=== PATIENT | male | born 1950 | race Two or more races ===

== ENCOUNTER 2016-07-22 08:08 | Emergency (ER) | payer BC ==
[~2016-07-22] VITALS: Wt 67.0 kg
[~2016-07-22 08:08] MED LIST: ATOR80TA75 PO; BACL10TA PO; CARV6.2579 PO; CLOP75TA27 PO; DOXA4TAB3 PO; GABA100C14 PO; ISOS10TA2 PO; LISI-313 PO; METF500T4 PO; PHEN300C2 PO
--- NOTE | 2016-07-22 08:43 | ERD ---
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 Patient states that he did see his primary care doctor to check his urine, they report that there was no evidence of any infection at the time of this appointment. He states that he feels like there is a "ball" at the left side of the rib, feels like it is pressure type sensation. Primary care doctor also saw him for this and was told that it was fine. He denies any cough, hemoptysis. He has not had any fever, chills, nausea, vomiting or hematuria. ROS All systems reviewed and are negative except as per history of present illness. Medications Home Meds Active Scripts Metformin* (Glucophage*) 500 Mg Tab, 500 MG PO WITH BREAKFAST DINNE, #60 TAB Prov:[employer] 09/14/15 Reported Medications Doxazosin Mesylate* (Doxazosin Mesylate*) 4 Mg Tablet, 4 MG PO DAILY, TAB 09/11/15 Phenytoin* Sodium Extended (Dilantin*) 300 Mg Capsule, 300 MG PO DAILY, CAP 09/11/15 Baclofen* (Baclofen*) 10 Mg Tablet, 10 MG PO DAILY, TAB 09/11/15 Gabapentin* (Gabapentin*) 100 Mg Capsule, 100 MG PO DAILY, #90 CAP 09/11/15 Atorvastatin* (Atorvastatin*) 80 Mg Tablet, 80 MG PO QHS, #30 TAB 09/11/15 Isosorbide Dinitrate* (Isordil*) 10 Mg Tablet, 30 MG PO DAILY, TAB 09/11/15 Clopidogrel Bisulfate (Clopidogrel) 75 Mg Tablet, 75 MG PO DAILY, #30 TAB 09/11/15 Lisinopril* (Lisinopril*) 5 Mg Tablet, 5 MG PO DAILY, #30 TAB 09/11/15 Carvedilol* (Carvedilol*) 6.25 Mg Tablet, 6.25 MG PO BID, #60 TAB 09/11/15 Allergies Allergies: Coded Allergies: No Known Allergy (Unverified , 09/11/15) PMhx/Soc History of Surgery: No Anesthesia Reaction: No Hx Neurological Disorder: No Hx Respiratory Disorders: No Hx Psychiatric Problems: No Hx Miscellaneous Medical Probl: No Hx Alcohol Use: No Hx Substance Use: No Hx Tobacco Use: No Physical Exam Vitals Vital Signs Date Time Temp Pulse Resp B/P Pulse Ox O2 Delivery O2 Flow Rate FiO2 07/22/16 08:13 98.6 59 17 126/81 99 Physical Exam General: Well-developed, well-nourished. Left-sided paralysis baseline HEENT: Head is normocephalic, atraumatic. No scleral icterus. Neck: Supple. Nontender. Lungs: Clear to auscultation. Normal air movement. No crepitus, no skin changes or rash on chest Heart: Regular rate and rhythm. S1 and S2 are normal. No murmurs, gallops, or rubs. Abdomen: Soft, nontender, nondistended. Bowel sounds are normoactive. Extremities: No clubbing or cyanosis. Normal pulses. Moves right upper and left upper extremity. Residual weakness on left upper and left lower extremity has baseline Neurologic: Alert and oriented 3. Speech is normal, patient is in a wheelchair normally. Skin: Normal turgor. No rash or lesions. Results 24 hrs Laboratory Tests Test 07/22/16 08:56 07/22/16 10:03 Bedside Urine pH (LAB) 7.0 Bedside Urine Protein (LAB) Negative Bedside Urine Glucose (UA) Negative Bedside Urine Ketones (LAB) Negative Bedside Urine Blood Trace-intact Bedside Urine Nitrite (LAB) Negative Bedside Urine Leukocyte Esterase (L Negative Bedside Glucose 118mg/dL PROCEDURE: Chest x-ray CLINICAL INDICATION: Left-sided rib pain TECHNIQUE: Chest single view COMPARISON: 09/26/2015 FINDINGS: The heart is normal in size. The pulmonary vessels are normal in caliber. The lungs are clear. The costophrenic angles are sharp. The visualized bony thorax is unremarkable. No displaced rib fractures identified IMPRESSION: No acute cardiopulmonary disease. No evidence of pneumothorax RPTAT: .Jeet Albright MD, MD Date Time Electronically viewed and signed by .Jeet Albright MD, MD on 07/22/2016 09:30 .W/ CC: YURI WANG PA-C 12-lead EKG(interpreted by supervising physician): Reviewed by Dr. Garcia Rate/Rhythm: Normal Sinus Rhythm, rate of 58. QRS, ST, T-waves: No changes consistent w/ acute ischemia, no intervals, no dysrhythmias, no ectopy. Mild ST elevation in lead II, 3 and aVF are normal. Impression: No evidence of ischemia or arrhythmia Procedures/MDM 66-year-old male comes emergency department with left-sided chest pressure-like sensation for the past month. This patient has been seen for the same problem back in January 2016 and already has been seen by his primary care physician for this. His pain is exactly the same, constant, there is no exertional pain. EKG does not show any evidence of any acute ischemia. Chest x-ray was also performed, what that was normal. Advised patient to follow-up regarding this pain, with his primary care physician, perhaps he will need further workup, however there are no signs of any acute coronary process and this may be an outpatient. He also comes in with dysuria for the past 1 month, there is no history of gross hematuria urine was negative at this time, he has been seen by his primary care doctor for the same reason as well, he I have advised him to recheck with his primary, and perhaps urology if symptoms do not get better. Referral to urology was also provided. Patient's blood pressure was elevated (>120/80) but appears stable without evidence of hypertension emergency or urgency. The patient was counseled about the risks of hypertension and urged to pursue outpatient monitoring and therapy within a week with their primary care physician. The case was reviewed and discussed with Dr. Garcia who agrees with the plan of care including labs, treatment, and advanced imaging as appropriate. Departure Diagnosis: Primary Impression: Multiple complaints Additional Impressions: Dysuria Soft tissue complaint Condition: Good YURI WANG PA-C July 22, 2016 08:43
[2016-07-22 08:53] LABS: URINE BLOOD (Dip) POC Trace-intact (NEGATIVE)
--- NOTE | 2016-07-22 09:31 | RADRPT ---
PROCEDURE: Chest x-ray CLINICAL INDICATION: Left-sided rib pain TECHNIQUE: Chest single view COMPARISON: 09/26/2015 FINDINGS: The heart is normal in size. The pulmonary vessels are normal in caliber. The lungs are clear. Th e costophrenic angles are sharp. The visualized bony thorax is unremarkable. No displaced rib fract ures identified IMPRESSION: No acute cardiopulmonary disease. No evidence of pneumothorax RPTAT: HH .Jeet Albright MD, MD Date Time Electronically viewed and signed by .Jeet Albright MD, on 07/22/2016 09:30 .W/
== END 2016-07-22 10:08 | disposition home or self-care (01) ==
LOC: FTE 08:08
DX: R30.0 Dysuria (principal); R22.2 Localized swelling, mass and lump, trunk; R10.30 Lower abdominal pain, unspecified; R07.81 Pleurodynia
CPT/HCPCS: 71010; 81003; 82962; 87086; 93005

== ENCOUNTER → 2016-12-09 | Outpatient (CLI) | payer MEDICARE, BC ==
[~2016-12-09] MED LIST changes: +IOHEXOL 300MG/ML 150 ML BTL ONE; +SOD CHLORIDE 0.9% 100 ML ONE
--- NOTE | 2016-12-10 10:23 | RADRPT ---
PROCEDURE: CT abdomen with and without contrast. CLINICAL INDICATION: Left upper quadrant pain TECHNIQUE: CT scan of the abdomen without contrast was performed and is reconstructed at 2.5 mm co ntiguous axial intervals from the dome of the diaphragm to the inferior pubic rami.. The patient wa s then injected with intravenous contrast and repeat imaging of the abdomen was performed.. Sagitta l and coronal reformatted images were obtained from the axial source images. The calculated radiatio n dose measures 546 mGy centimeters. The CTDI measures 8 mGy. Individualized dose optimization technique was used for the performance of this exam. This included 1. Automated exposure control. 2. Adjustment of the mA and / or kV according to the patient's size. 3. Use of iterative reconstructed technique. COMPARISON: None. FINDINGS: The lung bases are clear of any infiltrate or nodule. No effusion is seen. There are coronary arter y calcifications. The liver is of normal size, contour and attenuation with no mass or ductal dilatation. No gallston es are visualized. No splenic or pancreatic abnormalities present. there is a 5 mm low density non calcified left adrenal nodule compatible with an adenoma. Kidneys enhance symmetrically and are of normal size and contour. No hydronephrosis, calculus or s olid masses seen. There are cortical renal cysts of the left kidney. Ureters are of normal course a nd caliber with no stone. There is no aneurysm. There are dense vascular calcifications. No adenopathy is present. No bowel mass or obstruction is present. The appendix is normal. No phlegmon, ascites or pneumop eritoneum is visualized. The osseous structures are intact. IMPRESSION: No evidence of urolithiasis, obstructive uropathy, diverticulitis or appendicitis. No mass or adenop athy. Vascular calcifications. Small left adrenal adenoma. Renal cysts. .Richard Leon MD, MD Date Time Electronically viewed and signed by .Richard Leon MD, MD on 12/10/2016 10:23 .A/
== END | disposition home or self-care (01) ==
LOC: C/S 09:04
PROVIDERS: ATTEND Internal Medicine
DX: R10.12 Left upper quadrant pain (principal)
CPT/HCPCS: 74170; Q9967